=== PATIENT | female | born 1960 | race Caucasian/White ===

== ENCOUNTER 2021-05-03 17:12 | Emergency (ER) | payer OTHER, SELFPAY ==
--- NOTE | ~2021-05-03 | XR_ITS ---
EXAMINATION: XR thoracolumbar DATE: 05/03/2021 18:23 INDICATION: Mid to low back pain. TECHNIQUE: 2 views of the thoracolumbar spine on 3 radiographs were obtained. COMPARISON: None. FINDINGS: There is 5 degrees levocurvature of thoracolumbar spine. Vertebral body heights are normal. There is moderately decreased disc height at L4-L5 with endplate remodeling. There is moderate to se caitlin facet joint osteoarthritis in lower lumbar spine. Surgical clips in the right upper quadrant are likely from cholecystectomy. IMPRESSION: 1. Moderate lower lumbar spondylosis. Reviewed, dictated and finalized at location A. VINER MECHANIC
--- NOTE | ~2021-05-03 | XR_ITS ---
EXAMINATION: XR ribs LT 2V DATE: 05/03/2021 18:22 INDICATION: Left rib pain. TECHNIQUE: 2 views of the left ribs on 4 radiographs were obtained. COMPARISON: None. FINDINGS: There is no left-sided pneumonia, pleural effusion, or pneumothorax. The heart size is norm al. IMPRESSION: 1. No rib fracture. Reviewed, dictated and finalized at location A. BEADER MAKER IMPRESSION: 1. No rib fracture.
--- NOTE | ~2021-05-03 | XR_ITS ---
EXAMINATION: XR knee LT 2V DATE: 05/03/2021 18:22 INDICATION: Left knee injury and pain. TECHNIQUE: 2 views of left knee were obtained. COMPARISON: None. FINDINGS: Bone alignment is normal. No fracture. There is mild tricompartmental osteoarthritis charac terized by tiny marginal osteophytes. No joint space narrowing. No knee joint effusion. IMPRESSION: 1. Mild left knee osteoarthritis. Reviewed, dictated and finalized at location A. IAL EDUCATION PARAPROFESSIONAL
[2021-05-03 17:34] VITALS: BP 116/75; PULSE 80; RESP 18; TEMP 36.6; O2SAT 100
[2021-05-03] MEDS: KETOROLAC (*BKC) 60 MG/2 ML VIAL IM (17:49)
--- NOTE | 2021-05-03 18:35 | ED.LOWEXIN ---
HPI - Extremity Injury (Lower) General Chief Complaint: Extremity Injury, Lower Stated Complaint: left knee pain/fell Source: patient Mode of arrival: ambulatory Limitations: no limitations History of Present Illness HPI Narrative: this is a 61-year-old female with history of diabetes presents after she fell in a and misstepped injuring her left knee and the left side of her lower ribs and mid and lower back, she rates it about a 6/10 has been taking ibuprofen with moderate relief call her physician and was advised to come to the ER for further evaluation patient did not pass out denied misstepped she just did not see that there was a pothole which she stepped in causing knee pain and lower back and rib pain on the left side. Otherwise no head injury patient is not dizzy did not pass out no chest pain no shortness of breath currently there is some point tenderness with no swelling no bruising. complaint: knee injury and other ( left rib and thoracolumbar 0 tenderness) Onset (ago): day(s) Related Data Home Medications Medication Instructions Recorded Confirmed fluoxetine [Prozac] 40 mg PO DAILY 05/03/21 05/03/21 glipizide [Glucotrol] 10 mg PO DAILY 05/03/21 05/03/21 levothyroxine [Levo-T] 50 mcg PO DAILY 05/03/21 05/03/21 sitagliptin [Januvia] 100 mg PO DAILY 05/03/21 05/03/21 trazodone 100 mg PO HS 05/03/21 05/03/21 Allergies Allergy/AdvReac Type Severity Reaction Status Date / Time Sulfa (Sulfonamide Allergy Unknown Verified 03/02/14 10:33 Antibiotics) 1 1 SULFA Allergy Unknown Uncoded 11/23/02 12:00 KNFA Allergy Unknown Uncoded 11/23/02 12:00 Review of Systems Review of Systems: All systems reviewed & are unremarkable except as noted in HPI and below PMFSH Past Medical History Medical History Diabetes mellitus Family History Family History Father Carcinoma of colon Grandparent Carcinoma of colon Other Family history of malignant neoplasm Social History Social History Smoking status: Never smoker Alcohol intake: never Exam Const: General: no acute distress Orientation/consciousness: patient oriented x3 HENMT: Head: normal to inspection Eyes: Pupils: Equal, round and reactive pupils present EOM: EOMs intact bilaterally Direct Ophthalmoscopy: no photophobia Neck: Neck: normal visual inspection, no lymphadenopathy and no meningeal signs Chest: Chest palpation & inspection: normal inspection of the chest Resp: Effort & Inspection: normal respiratory effort Auscultation: clear to auscultation bilaterally Cardio: Rate: regular rate Rhythm: regular rhythm GI: GI Palp: Yes Soft to palpation : General: Yes no CVA tenderness Skin: General skin exam: normal color Rashes: no rashes Neuro: General: patient oriented x3, moves all extremities, no meningeal signs and no focal motor deficits Extrem: Other: left knee pain with palpation with some left lower rib and mid and lower back pain with palpation with no bruising no swelling. Psych: Mental Status: mental status grossly normal Affect: normal affect Course Course Emergency Course: Patient did receive IM Toradol, x-rays were reviewed with patient advised to go home get some rest take some ibuprofen / Tylenol and take medicine as prescribed and follow-up with her practitioner if symptoms persist or worsen. Vital Signs Vital signs: Vital Signs Temperature 36.6 C 05/03/21 17:34 Pulse Rate 80 05/03/21 17:34 Respiratory Rate 18 05/03/21 17:34 Blood Pressure 116/75 05/03/21 17:34 Pulse Oximetry 100 05/03/21 17:34 Temperature 36.6 C 05/03/21 17:34 Pulse Rate 80 05/03/21 17:34 Respiratory Rate 18 05/03/21 17:34 Blood Pressure 116/75 05/03/21 17:34 Pulse Oximetry 100 05/03/21 17:34 Critical Care Time Critical Ca
[2021-05-03 18:48] VITALS: BP 111/70; PULSE 72; RESP 18; TEMP 36.1; O2SAT 97
== END 2021-05-03 18:49 | disposition home or self-care (01) ==
PROVIDERS: Emergency Provider Emergency Medicine
DX: T14.8XXA Other injury of unspecified body region, initial encounter (principal); W19.XXXA Unspecified fall, initial encounter
CPT/HCPCS: 71100; 72080; 73560; 96372; 99283; 99284; J1885

== ENCOUNTER 2021-08-09 11:00 | Outpatient (RCR) | payer OTHER, SELFPAY ==
--- NOTE | 2021-07-16 13:56 | PTOPEVAL ---
Thank you for referring Yamileth Montanez to [facility].? The patient is scheduled to be seen for therapy?2 x/week for 6 weeks. Please review, sign, date and return this plan of care SILAS. I agree with and certify that the following plan of care is medically necessary. Referring Physician Date Referring Provider: Onofre Pederson PA-C Problem Diagnosis right leg and back pain Onset 05/03/21 Additional Evaluation Detail She had a fall on 05/03/21. [place] forward. She went to ED the next day. X -rays were taken: no fractures noted She had an injection in her knee with 2 days improved symptoms. 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 She perform step together pattern on steps No regular walking or fitness program. She had a [employer] until Nov. Pain Assessment Lower Back Reported Pain Level 3 Pain Description Sharp Pain Frequency Continuous Lowest Pain Intensity 2 Greatest Pain Intensity 10 Pain Aggravating Factors ADL's,Bending,Lifting, Prolonged Position,Sitting, Stair Climbing,Walking,Weight Bearing/Standing Right Leg(s) Reported Pain Level 6 Pain Description Numbness,Sharp,Stabbing Pain Frequency Continuous Lowest Pain Intensity 6 Greatest Pain Intensity 10 Pain Aggravating Factors ADL's,Bending,Lifting,Sitting, Stair Climbing,Walking,Weight Bearing/Standing Cervical and Lumbar ROM Lumbar ROM Lumbar Comments flex: hand reach upper thigh- painful ext: slightly past midline: painful
--- NOTE | 2021-07-19 13:30 | PCPTNOTE ---
Patient called & cancelled scheduled appointment this date due to weather.
--- NOTE | 2021-08-01 09:35 | PCPTNOTE ---
Patient called & cancelled scheduled appointment this date due to having an upset stomach.
--- NOTE | 2021-08-13 07:20 | PCPTNOTE ---
Patient called & cancelled scheduled appointment this date due to MD wanting to re-evaluate patient due to increase pain.
--- NOTE | 2021-08-16 11:12 | PCPTNOTE ---
Patient did not show up for scheduled appointment this date. Called pt due to unclear when she had a f/u with MD and if she was to return for additional therapy. Left message for her to call regarding her next visit on 08/20.
--- NOTE | 2021-08-20 11:10 | PCPTNOTE ---
Patient did not show up for scheduled appointment this date. Will DC pt from therapy at this time.
--- NOTE | 2021-08-20 11:11 | PCPTNOTE ---
Admitting Provider: Attending Provider: Onofre Pederson PA-C Patient:Yamileth Montanez Date of :1960 Physical Therapy Discharge Summary Patient has not returned for any further treatments since 08/09/2021, therefore she will be discharged at this time. Patient?s initial visit was on 07/16/2021 11:00 and she had a total of 6 visits. She was placed on hold by her doctor for therapy. Multiple attempts were made to contact Yamileth regarding therapy and her follow up with the doctor. The goals have been not met. Thank you for referring this patient to [facility]. Please review, sign, date and return this discharge summary SILAS. I have been updated about the patient's current status and I agree with discharge from the above service at this time. Referring Physician Date
== END 2021-08-20 17:06 | disposition home or self-care (01) ==
LOC: ANHPT 11:00
DX: M25.561 Pain in right knee (principal); M54.16 Radiculopathy, lumbar region
CPT/HCPCS: 97014; 97110; 97112; 97116; 97140; 97163; G0283